=== PATIENT | male | born 1960 | race African-American/Black ===

== ENCOUNTER 2017-06-25 13:11 | Emergency (ER) | payer OTHER ==
[~2017-06-25 13:11] MED LIST: CEPH-37
[2017-06-25 13:27] VITALS: BP 156/91
[2017-06-25] MEDS ORDERED: TETANUS-DIPTH-ACEL PERTUSSIS 0.5ML SYRG IM ONE (13:30)
[2017-06-25] MEDS ORDERED: HYDROmorphone HCL 2 MG/ML VL IM ONE (13:30)
[2017-06-25] MEDS ORDERED: SILVER SULFADIAZINE 1 % TOPICAL CREAM 50GM TOP ONE (13:30)
[2017-06-25] MEDS ORDERED: ONDANSETRON HCL 4 MG/2 ML VIAL IM ONE (13:30)
== END 2017-06-25 14:24 | disposition home or self-care (01) ==
LOC: ER 13:11
DX: T21.12XA Burn of first degree of abdominal wall, initial encounter (principal); T21.11XA Burn of first degree of chest wall, initial encounter; T20.13XA Burn of first degree of chin, initial encounter; T22.112A Burn of first degree of left forearm, initial encounter; T22.111A Burn of first degree of right forearm, initial encounter; X11.8XXA Contact with other hot tap-water, initial encounter; Y93.89 Activity, other specified; Y99.8 Other external cause status; Y92.89 Other specified places as the place of occurrence of the external cause
CPT/HCPCS: 16000; 90471; 90715; 96372; 99284; J1170; J2405

== ENCOUNTER 2017-06-29 06:19 | Emergency (ER) | payer OTHER ==
[~2017-06-29] VITALS: Ht 172.7 cm; Wt 86.2 kg
[2017-06-29 07:33] VITALS: BP 136/95
== END 2017-06-29 08:02 | disposition home or self-care (01) ==
LOC: ER 06:19
DX: T21.22XD Burn of second degree of abdominal wall, subsequent encounter (principal); T22.112D Burn of first degree of left forearm, subsequent encounter; Y92.89 Other specified places as the place of occurrence of the external cause; Z79.899 Other long term (current) drug therapy; Z48.01 Encounter for change or removal of surgical wound dressing

== ENCOUNTER 2021-01-19 21:50 | Emergency (ER) | payer OTHER ==
[~2021-01-19] VITALS: Ht 172.7 cm; Wt 93.0 kg
[2021-01-19] MEDS ORDERED: KETOROLAC TROMETH 60MG/2ML VIAL IM ONE (23:45)
[2021-01-20 00:05] VITALS: BP 155/84
== END 2021-01-20 01:02 | disposition home or self-care (01) ==
LOC: ER 21:59
DX: S39.012A Strain of muscle, fascia and tendon of lower back, initial encounter (principal); S16.1XXA Strain of muscle, fascia and tendon at neck level, initial encounter; K40.90 Unilateral inguinal hernia, without obstruction or gangrene, not specified as recurrent; V49.9XXA Car occupant (driver) (passenger) injured in unspecified traffic accident, initial encounter; Y93.89 Activity, other specified; Y92.89 Other specified places as the place of occurrence of the external cause; Y99.8 Other external cause status
CPT/HCPCS: 72040; 72100; 74176; 96372; 99284; J1885

== ENCOUNTER 2021-11-29 02:30 | Emergency (ER) | payer OTHER ==
[~2021-11-29] VITALS: Ht 172.7 cm; Wt 94.5 kg
[2021-11-29 02:30] VITALS: BP 152/90
== END 2021-11-29 06:01 | disposition home or self-care (01) ==
LOC: ER 02:30
DX: S89.91XA Unspecified injury of right lower leg, initial encounter (principal); F12.10 Cannabis abuse, uncomplicated; X58.XXXA Exposure to other specified factors, initial encounter; Y93.89 Activity, other specified; Y92.89 Other specified places as the place of occurrence of the external cause; Y99.8 Other external cause status

== ENCOUNTER → 2022-01-17 | Outpatient (CLI) | payer OTHER | END | disposition home or self-care (01) | LOC: LAB 14:01 | PROVIDERS: ATTEND Internal Medicine | DX: N40.0 Benign prostatic hyperplasia without lower urinary tract symptoms (principal); N43.3 Hydrocele, unspecified | CPT/HCPCS: 82270 ==

== ENCOUNTER → 2022-06-05 | Outpatient (CLI) | payer OTHER | END | disposition home or self-care (01) | LOC: LAB 08:39 | PROVIDERS: ATTEND Internal Medicine | DX: K86.89 Other specified diseases of pancreas (principal) | CPT/HCPCS: 36415; 82565; 84520 ==

== ENCOUNTER → 2022-06-19 | Outpatient (CLI) | payer OTHER | END | disposition home or self-care (01) | LOC: LAB 08:21 | PROVIDERS: ATTEND Internal Medicine | DX: K76.89 Other specified diseases of liver (principal) | CPT/HCPCS: 36415; 82565; 84520 ==

== ENCOUNTER → 2022-10-03 | Outpatient (CLI) | payer OTHER ==
[2022-10-03 12:49] LABS: Cholesterol 157 mg/dL (< 200); HDL Cholesterol 36 mg/dL (40-59); LDL Cholesterol 101 mg/dL (< 100); Triglycerides 88 mg/dL (< 150)
== END | disposition home or self-care (01) ==
LOC: LAB 11:58
PROVIDERS: ATTEND Internal Medicine
DX: R73.03 Prediabetes (principal); R97.20 Elevated prostate specific antigen [PSA]
CPT/HCPCS: 36415; 80061; 82043; 83036; 84153; 84154

== ENCOUNTER → 2023-05-01 | Outpatient (CLI) | payer OTHER ==
[2023-05-01 08:31] LABS: LDL Cholesterol 100 mg/dL (< 100); Triglycerides 106 mg/dL (< 150)
[2023-05-01 08:33] LABS: Cholesterol 145 mg/dL (< 200); HDL Cholesterol 32 mg/dL (40-59)
== END | disposition home or self-care (01) ==
LOC: LAB 07:43
PROVIDERS: ATTEND Internal Medicine
DX: R73.03 Prediabetes (principal); E78.5 Hyperlipidemia, unspecified
CPT/HCPCS: 36415; 80061; 83036

== ENCOUNTER 2023-09-18 04:25 | Emergency (ER) | payer OTHER ==
[~2023-09-18] VITALS: Ht 172.7 cm; Wt 96.4 kg
[2023-09-18 04:54] VITALS: BP 152/74; PULSE 96; RESP 18
[2023-09-18] MEDS ORDERED: IBUPROFEN 600 MG TAB PO ONE (07:00)
[2023-09-18 07:02] VITALS: O2SAT 96
[2023-09-18] MEDS ORDERED: CYCL-837 PO (07:29)
[2023-09-18] MEDS ORDERED: NABU-72 PO (07:29)
[2023-09-18 08:16] VITALS: TEMP 99.3
== END 2023-09-18 07:45 | disposition home or self-care (01) ==
LOC: ER 04:25
DX: M54.2 Cervicalgia (principal); M54.50 Low back pain, unspecified; Z79.899 Other long term (current) drug therapy; V49.9XXA Car occupant (driver) (passenger) injured in unspecified traffic accident, initial encounter; Y93.89 Activity, other specified; Y92.410 Unspecified street and highway as the place of occurrence of the external cause; Y99.8 Other external cause status
CPT/HCPCS: 72040; 72100

== ENCOUNTER 2025-02-01 01:18 | Emergency (ER) | payer BC, OTHER ==
[~2025-02-01] VITALS: Ht 172.7 cm; Wt 84.5 kg
[~2025-02-01 01:18] MED LIST changes: +CYCL-837 PO; +NABU-72 PO
[2025-02-01 01:30] VITALS: BP 135/60; PULSE 73; RESP 18; TEMP 98.4; O2SAT 95
--- NOTE | 2025-02-01 02:27 | DVH ---
CHEST RADIOGRAPH Indication: COUGH/CONGESTION FOR 2 WEEKS. Technique: Single frontal view of the chest was obtained COMPARISON: None FINDINGS: Lines and Tubes: None Lungs: Clear Pleura: No effusion. No pneumothorax. Cardiomediastinal contours: Unremarkable Bones: Unremarkable IMPRESSION: 1. No acute disease.
[2025-02-01] MEDS ORDERED: AZIT-43 PO (02:50)
[2025-02-01] MEDS ORDERED: METH4PAK PO (02:50)
--- NOTE | 2025-02-01 02:50 | ED.PDOC ---
SOB-HPI HPI Comments 64-year-old male presents to the ED chief complaint cough x2 weeks. Patient reports related symptoms of chest congestion. He notes trial of [id number] medications with no relief. He reports no chest pain, difficulty breathing, or shortness of breath. Denies fever, chills, nausea, and vomiting. Chief Complaint: Cough Time Seen by MD: 01:42 Primary Care Provider: SABRINA Reviewed notes: Nurses Notes, Medications, Allergies Information Source: Patient Mode of Arrival: Ambulatory Past Medical History PAST MEDICAL HISTORY: Denies Surgical History: Denies all surgeries Family History Family History: Reviewed,noncontributory to illness, Unknown Social History Smoker: Non-Smoker Alcohol: Denies ETOH Use Drugs: Marijuana Lives In: Home Constitutional: denies: chills, diaphoresis, fatigue, fever, malaise, sweats, weakness, others EENTM: denies: blurred vision, double vision, ear bleeding, ear discharge, ear drainage, ear pain, ear ringing, eye pain, eye redness, hearing loss, mouth pain, mouth swelling, nasal discharge, nose bleeding, nose congestion, nose pain, photophobia, tearing, throat pain, throat swelling, voice changes, others Respiratory: reports: cough; denies: hemoptysis, orthopnea, SOB at rest, shortness of breath, SOB with excertion, stridor, wheezing, others Cardiovascular: denies: chest pain, dizzy spells, diaphoresis, Dyspnea on exertion, edema, irregular heart beat, left arm pain, lightheadedness, palpitations, PND, syncope, others Gastrointestinal: denies: abdomen distended, abdominal pain, blood streaked bowels, constipated, diarrhea, dysphagia, difficulty swallowing, hematemesis, melena, nausea, poor appetite, poor fluid intake, rectal bleeding, rectal pain, vomiting, others Genitourinary: denies: burning, dysuria, flank pain, frequency, hematuria, incontinence, penile discharge, penile sore, pain, testicle pain, testicle swelling, urgency, others Neurological: denies: dizziness, fainting, headache, left sided numbness, left sided weakness, numbness, paresthesia, pre-existing deficit, right sided numbness, right sided weakness, seizure, speech problems, tingling, tremors, weakness, others Musculoskeletal: denies: back pain, gout, joint pain, joint swelling, muscle pain, muscle stiffness, neck pain, others Integumetry: denies: bruises, change in color, change in hair/nails, dryness, laceration, lesions, lumps, rash, wounds, others Allergic/Immunocompromised: denies: Difficulty Healing, Frequent Infections, Hives, Itching, others Hematologic/Lymphatic: denies: anemia, blood clots, easy bleeding, easy bruising, swollen glands, others Endocrine: denies: excessive hunger, excessive sweating, excessive thirst, excessive urination, flushing, intolerance to cold, intolerance to heat, unexplained weight gain, unexplained weight loss, others Psychiatric: denies: anxiety, bipolar disorder, depression, hopeless, panic disorder, schizophrenia, sleepless, suicidal, others Physical Exam General Appearance: No Apparent Distress, Normal HEENT: Normal ENT Inspection, Pharynx Normal, TMs Normal Neck: Full Range of Motion, Non-Tender, Normal, Normal Inspection Respiratory: Chest Non-Tender, No Accessory Muscle Use, No Respiratory Distress, Rhonchi Cardiovascular: No Edema, No JVD, No Murmur, No Gallop, Normal Peripheral Pulses, Regular Rate/Rhythm Breast Exam: Deferred Gastrointestinal: No Organomegaly, Non Tender, No Pulsatile Mass, Normal Bowel Sounds, Soft Genitalia: Deferred Pelvic: Deferred Rectal: Deferred Extremities: Normal capillary refill, Normal inspection, Normal range of motion, Non-tender, No pedal edema Musculoskeletal : Apperance: Normal Neurologic: Alert, No Motor Deficits, Normal Affect, Normal Mood, No Sensory Deficits Cerebellar Function: Normal Reflexes: Normal Skin: Dry, Normal Color, Warm Lymphatic: No Adenopathy Was a procedure done? Was a procedure done?: No Differential Dx Differential Diagnosis: Bronchitis, Pneumonia, URI X-Ray, Labs, Meds, VS Vital Signs Date Time Temp Pulse Resp B/P (MAP) Pulse Ox O2 Delivery O2 Flow Rate FiO2 02/01/25 01:30 18 95 Room Air* 0 21 02/01/25 01:30 98.4 73 18 135/60 (85) 95 98.4 X-Ray, Labs, Meds, VS Comment Chest x-ray shows no acute cardiopulmonary findings. Likely bronchitis. We will trial azithromycin and Medrol Dosepak. Advised to take medications as prescribed side effects discussed. Advised to rest increase p.o. fluids with electrolytes. Follow up with your PCP in 2-3 days as necessary. ER return precautions given patient indicates understanding and agrees with discharge plan of care. Time of 1ST Reevaluation: 01:40 Reevaluation 1ST: Unchanged Time of 2ND Reevaluation: 02:49 Reevaluation 2ND: Improved Patient Education/Counseling: Diagnosis, Treatment, Prognosis, Need For Follow Up Family Education/Counseling: No Family Present Departure 1 Departure Time of Disposition: 02:49 Impression: Primary Impression: Bronchitis Disposition: 01 HOME / SELF CARE / HOMELESS Condition: Stable e-Prescriptions Methylprednisolone (Medrol Dosepak) 4 Mg Veto 4 MG PO UD for 6 Days, #21 TAB UAD Prov: PAM PALACIOS 02/01/25 Azithromycin (Azithromycin) 250 Mg Tab 250 MG PO DAILY MDD 500 for 5 Days, #6 TAB 0 Refills 2 TABLETS ORALLY ON DAY ONE, THEN 1 TABLET ORALLY DAILY FOR 4 DAYS Prov: PAM PALACIOS 02/01/25 Discharged With: Self Critical Care Note Critical Care Time?: No Stability Stability form required: No Heart Score Heart Score: Heart Score Response (Comments) Value History N/A 0 EKG N/A 0 Age 45-64 1 Risk Factors N/A 0 Troponin N/A 0 Total 1 PAM PALACIOS Feb 01, 2025 02:50
== END 2025-02-01 03:36 | disposition home or self-care (01) ==
LOC: ER 01:18
DX: J40 Bronchitis, not specified as acute or chronic (principal); F12.90 Cannabis use, unspecified, uncomplicated
CPT/HCPCS: 71045

== ENCOUNTER 2025-04-11 02:57 | Emergency (ER) | payer BC, OTHER ==
[~2025-04-11] VITALS: Ht 172.7 cm; Wt 97.7 kg
[~2025-04-11 02:57] MED LIST changes: +AZIT-43 PO; +METH4PAK PO
[2025-04-11] MEDS: KETOROLAC TROMETH 60MG/2ML VIAL IM ONE (05:03)
[2025-04-11 05:09] VITALS: BP 149/78; PULSE 61; RESP 18; TEMP 98.6; O2SAT 99
--- NOTE | 2025-04-11 05:21 | DVH ---
CLINICAL INDICATION: fall TECHNIQUE: XY PELVIS AP Comparison: None FINDINGS/IMPRESSION: : There is no evidence of acute fracture or dislocation. Soft tissues are unremarkable.
[2025-04-11] MEDS ORDERED: IBU600T PO (05:45)
--- NOTE | 2025-04-11 05:45 | ED.PDOC ---
History of Present Illness HPI Comments 64-year-old male came to the ER stating that he fell at work landing on his buttocks yesterday went home without any problem. After going home he started to have pain in his buttocks. He he is able to ambulate without difficulty. Vitals were stable on arrival. Denies any other symptoms. Chief Complaint: Fall Injury Time Seen by MD: 03:26 Primary Care Provider: DENIES Reviewed Notes: Nurses Notes, Medications, Allergies Allergies: Coded Allergies: NO KNOWN ALLERGIES (Unverified , 12/01/12) Home Meds Active Scripts Methylprednisolone (Medrol Dosepak) 4 Mg Veto, 4 MG PO UD for 6 Days, #21 TAB UAD Prov:PAM PALACIOS [facility] 02/01/25 Azithromycin (Azithromycin) 250 Mg Tab, 250 MG PO DAILY MDD 500 for 5 Days, #6 TAB 0 Refills 2 TABLETS ORALLY ON DAY ONE, THEN 1 TABLET ORALLY DAILY FOR 4 DAYS Prov:PAM PALACIOS [facility] 02/01/25 Cyclobenzaprine Hcl (Cyclobenzaprine Hcl) 5 Mg Tab, 1 TAB PO TID PRN, #30 TAB Prov:COURTNEY LIN [facility] 09/18/23 Nabumetone (Nabumetone) 500 Mg Tab, 1 TAB PO BID, #20 TAB Prov:COURTNEY LIN [facility] 09/18/23 Reported Medications Cephalexin (Keflex) 500 Mg Cap 12/01/12 Information Source: Patient Mode of Arrival: Ambulatory Severity: Mild Timing: Days Duration: Since onset Past Medical History PAST MEDICAL HISTORY: Denies Surgical History: Denies all surgeries Family History Family History: Reviewed,noncontributory to illness, Unknown Social History Smoker: Non-Smoker Alcohol: Denies ETOH Use Drugs: Marijuana Lives In: Home Constitutional: denies: chills, diaphoresis, fatigue, fever, malaise, sweats, weakness, others EENTM: denies: blurred vision, double vision, ear bleeding, ear discharge, ear drainage, ear pain, ear ringing, eye pain, eye redness, hearing loss, mouth pain, mouth swelling, nasal discharge, nose bleeding, nose congestion, nose pain, photophobia, tearing, throat pain, throat swelling, voice changes, others Respiratory: denies: cough, hemoptysis, orthopnea, SOB at rest, shortness of breath, SOB with excertion, stridor, wheezing, others Cardiovascular: denies: chest pain, dizzy spells, diaphoresis, Dyspnea on exertion, edema, irregular heart beat, left arm pain, lightheadedness, palpitations, PND, syncope, others Gastrointestinal: denies: abdomen distended, abdominal pain, blood streaked bowels, constipated, diarrhea, dysphagia, difficulty swallowing, hematemesis, melena, nausea, poor appetite, poor fluid intake, rectal bleeding, rectal pain, vomiting, others Genitourinary: denies: burning, dysuria, flank pain, frequency, hematuria, incontinence, penile discharge, penile sore, pain, testicle pain, testicle swelling, urgency, others Neurological: denies: dizziness, fainting, headache, left sided numbness, left sided weakness, numbness, paresthesia, pre-existing deficit, right sided numbness, right sided weakness, seizure, speech problems, tingling, tremors, w eakness, others Musculoskeletal: reports: others (Pelvic pain); denies: back pain, gout, joint pain, joint swelling, muscle pain, muscle stiffness, neck pain Integumetry: denies: bruises, change in color, change in hair/nails, dryness, laceration, lesions, lumps, rash, wounds, others Allergic/Immunocompromised: denies: Difficulty Healing, Frequent Infections, Hives, Itching, others Hematologic/Lymphatic: denies: anemia, blood clots, easy bleeding, easy bruising, swollen glands, others Endocrine: denies: excessive hunger, excessive sweating, excessive thirst, excessive urination, flushing, intolerance to cold, intolerance to heat, unexplained weight gain, unexplained weight loss, others Psychiatric: denies: anxiety, bipolar disorder, depression, hopeless, panic disorder, schizophrenia, sleepless, suicidal, others Physical Exam General Appearance: Moderate Distress HEENT: Normal ENT Inspection, Pharynx Normal, TMs Normal Neck: Full Range of Motion, Non-Tender, Normal, Normal Inspection Respiratory: Chest Non-Tender, Lungs Clear, No Accessory Muscle Use, No Respiratory Distress, Normal Breath Sounds Cardiovascular: No Edema, No JVD, No Murmur, No Gallop, Normal Peripheral Pulses, Regular Rate/Rhythm Breast Exam: Deferred Gastrointestinal: No Organomegaly, Non Tender, No Pulsatile Mass, Normal Bowel Sounds, Soft Genitalia: Deferred Pelvic: Deferred Rectal: Deferred Extremities: No calf tenderness, Normal capillary refill, Normal inspection, Normal range of motion, Non-tender, No pedal edema Musculoskeletal : Apperance: Normal Neurologic: Alert, laboratory associate II-XII nml as Tested, No Motor Deficits, Normal Affect, Normal Mood, No Sensory Deficits Cerebellar Function: Normal Reflexes: Normal Skin: Dry, Normal Color, Warm Peripheral Pulses: 3+ Radial (R), 3+ Radial (L) Lymphatic: No Adenopathy Was a procedure done? Was a procedure done?: No Differential Dx Considerations may include: Muscle strain Musculoskeletal pain X-Ray, Labs, Meds, VS Vital Signs Date Time Temp Pulse Resp B/P (MAP) Pulse Ox O2 Delivery O2 Flow Rate FiO2 04/11/25 05:09 98.6 61 18 149/78 (101) 99 98.6 04/11/25 05:09 61 18 99 Room Air 04/11/25 04:07 98.0 67 16 136/81 (99) 97 98.0 04/11/25 02:58 98.1 74 16 152/78 97 98.1 Current Medications Medications (Trade) Dose Ordered Sig/Jeremie Route Start Time Stop Time Status Last Admin Ketorolac Tromethamine (Toradol Injection) 60 mg ONCE ONCE IM 04/11/25 04:45 04/11/25 04:46 DC 04/11/25 05:03 Patient alert. Status post fall. Vitals stable. Answering questions. Was given Toradol. Ambulating without difficulty. Has good muscle strength. Able to go the bathroom without any difficulty. X-ray of the pelvis does not show any acute process. Was given prescription of Motrin. Explained to the patient. Was told to follow up with his primary care physician. Was told to come back if there is any problem. Time of 1ST Reevaluation: 05:43 Reevaluation 1ST: Improved Patient Education/Counseling: Diagnosis, Treatment, Prognosis, Need For Follow Up Family Education/Counseling: No Family Present SEPSIS Sepsis Screen Date sepsis recognized/suspect: Apr 11, 2025 Time Sepsis recognized/suspect: 030 Recent Procedure: No On Antibiotic Therapy: No Respiratory Rate >20: No Heart Rate >90: No Temp<36 C (96.8 F) or >38.3 C: No SBP <90 or MAP <65 mmHG: No New Acute Mental Status Change: No Is the patient on CPAP, BIPAP,: No Physician Orders Pelvis Ap (04/11/25 04:37) Vital Signs Date Time Temp Pulse Resp B/P (MAP) Pulse Ox O2 Delivery O2 Flow Rate FiO2 04/11/25 05:09 98.6 61 18 149/78 (101) 99 98.6 04/11/25 05:09 61 18 99 Room Air 04/11/25 04:07 98.0 67 16 136/81 (99) 97 98.0 04/11/25 02:58 98.1 74 16 152/78 97 98.1 Medications Medications Dose Ordered Sig/Jeremie Route Start Time Stop Time Status Last Admin Dose Admin Ketorolac Tromethamine 60 mg ONCE ONCE IM 04/11/25 04:45 04/11/25 04:46 DC 04/11/25 05:03 Departure 1 Departure Time of Disposition: 05:44 Impression: Primary Impression: Musculoskeletal pain Additional Impression: HTN (hypertension) Qualified Codes: I10 - Essential (primary) hypertension Disposition: 01 HOME / SELF CARE / HOMELESS Condition: Good e-Prescriptions Ibuprofen Micronized (MOTRIN TABLET) 600 Mg Tb 600 MG PO TID PRN for 3 Days, #9 TAB *Black box warning-NSAIDS can increase risk of MD & hypertension, GI irritation, ulceration, bleed, perferation. Do not use post cardiac surgery. Use short duration/lowest effective dose. Prov: ALO FRANCO MD 04/11/25 Discharged With: Self Critical Care Note Critical Care Time?: No Stability Stability form required: No Heart Score Heart Score: Heart Score Response (Comments) Value History N/A 0 EKG N/A 0 Age N/A 0 Risk Factors N/A 0 Troponin N/A 0 Total 0 ALO FRANCO MD Apr 11, 2025 05:45
== END 2025-04-11 05:53 | disposition home or self-care (01) ==
LOC: ER 02:57
DX: M79.18 Myalgia, other site (principal); I10 Essential (primary) hypertension; F12.90 Cannabis use, unspecified, uncomplicated
CPT/HCPCS: 72170; 96372; 99283; J1885

== ENCOUNTER 2025-08-06 03:12 | Emergency (ER) | payer BC, OTHER ==
[~2025-08-06] VITALS: Ht 172.7 cm; Wt 102.9 kg
[~2025-08-06 03:12] MED LIST changes: +IBU600T PO
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
[2025-08-06] MEDS: KETOROLAC TROMETH 60MG/2ML VIAL IM ONE (04:41)
[2025-08-06 05:08] LABS: Urine Protein, UAD Negative (Negative)
--- NOTE | 2025-08-06 05:25 | DVH ---
CLINICAL INDICATION: STATUS POST INJURY INCONTINENT OF URINE AND STOOL. TECHNIQUE: CT of the lumbar spine was performed without intravenous contrast. Sagittal and coronal reformatted images are provided. All CT scans at this medical facility are performed using dose modulation techniques as appropriate to a performed exam including the following: Automated exposure control was utilized; adjustment of the MA and/or KV according to patient size; and use of iterative reconstruction technique. COMPARISON: XY LUMBAR SPINE 3 VIEW on DOS: 09/18/23, LUMBAR SPINE LTD on DOS: 01/19/21 CT Dose: CTDI volume is 38.8 mGy. Dose-length product is 1269.95 mGy*cm FINDINGS: The alignment and curvature of the lumbar spine are preserved. The vertebral bodies are normal in height. The intervertebral disc spaces are maintained. There is broad-based posterior disc bulge at L4-L5 and L5-S1. No significant spinal stenosis. There is mild bilateral neural foraminal stenosis at L4-L5. This is in part due to facet arthropathy which is also seen at L5-S1. The prevertebral soft tissues are unremarkable. Paraspinal muscles are also within normal limits. IMPRESSION: 1. No evidence of acute fracture or traumatic subluxation of the lumbar spine. Based on patient's symptoms, MRI of the lumbar spine is strongly recommended. 2. Degenerative changes at L4-L5 and L5-S1.
[2025-08-06] MEDS ORDERED: OXYB5TAB14 PO (05:33)
[2025-08-06 05:44] VITALS: BP 151/83; PULSE 72; RESP 18; TEMP 98.5; O2SAT 95
== END 2025-08-06 05:44 | disposition home or self-care (01) ==
LOC: ER 03:12
DX: M51.369 Other intervertebral disc degeneration, lumbar region without mention of lumbar back pain or lower extremity pain (principal); M48.061 Spinal stenosis, lumbar region without neurogenic claudication; N32.81 Overactive bladder; F12.90 Cannabis use, unspecified, uncomplicated; Z79.899 Other long term (current) drug therapy
CPT/HCPCS: 72131; 81001; 96372; 99285; J1100; J1885